=== PATIENT | male | born 1945 | race Caucasian/White ===

== ENCOUNTER 2016-10-27 16:25 | Inpatient (IN) | payer OTHER ==
[2016-10-27 17:34] VITALS: BMI 33.6
--- NOTE | 2016-10-27 21:10 | HP ---
Admission [facility] Chief Complaint: SEEKING DETOX SERVICES. Allergies/Adverse Reactions: Allergies Allergy/AdvReac Type Severity Reaction Status Date / Time No Known Allergies Allergy Verified 10/27/16 19:31 History of Present Illness: 71 y.o. man with an extensive history of alcohol dependence is here seeking rehab services. He reports he last completed rehab 2 months ago at [facility]. He reports he does not have a significant period of sobriety. Exam Limitations: Physical Impairment (Ambulates with the use of a cane.) - Ebola screening Have you traveled outside of the country in the last 21 days: No (N) Have you had contact with anyone from an Ebola affected area: No Have you been sick,other than usual withdrawal symptoms: No Do you have a fever: No - Review of Systems Constitutional: Changes in sleep EENT: reports: No Symptoms Reported Respiratory: reports: Wheezing Cardiac: reports: No Symptoms Reported GI: reports: No Symptoms Reported : reports: No Symptoms Reported Musculoskeletal: reports: No Symptoms Reported Integumentary: reports: No Symptoms Reported Neuro: reports: No Symptoms reported Endocrine: reports: No Symptoms Reported Hematology: reports: No Symptoms Reported Psychiatric: reports: Orientated x3 Other Systems: Reviewed and Negative Patient History - Patient Medical History Hx Anemia: No Hx Asthma: Yes Hx Chronic Obstructive Pulmonary Disease (COPD): No Hx Cancer: No Hx Cardiac Disorders: Yes (CABG) Hx Congestive Heart Failure: No Hx Hypertension: No Hx Hypercholesterolemia: Yes Hx Pacemaker: No HX Cerebrovascular Accident: No Hx Seizures: No Hx Dementia: No Hx Diabetes: No Hx Gastrointestinal Disorders: No Hx Liver Disease: No Hx Genitourinary Disorders: No Hx Sexually Transmitted Disorders: No Hx Renal Disease (ESRD): No Hx Thyroid Disease: No Hx Human Immunodeficiency Virus (HIV): No Hx Hepatitis C: No Hx Depression: No Hx Suicide Attempt: No Hx Bipolar Disorder: No Hx Schizophrenia: No - Patient Surgical History Past Surgical History: Yes Hx Cardiac Surgery: Yes (CABG ) Hx Appendectomy: Yes Anesthesia Reaction: No - PPD History Previous Implant?: Yes Documented Results: Negative w/o proof PPD to be Administered?: Yes - Reproductive History Patient is a Female of Child Bearing Age (11 -55 yrs old): No - Smoking Cessation Smoking history: Current every day smoker Have you smoked in the past 12 months: Yes Aproximately how many cigarettes per day: 3 Hx Chewing Tobacco Use: No Initiated information on smoking cessation: Yes 'Breaking Loose' booklet given: 10/27/16 - Substance & Tx. History Hx Alcohol Use: Yes Hx Substance Use: No Substance Use Type: Alcohol Hx Substance Use Treatment: Yes (REHAB: 08/2016; DENIES GOING TO [facility]OX [facility] ) - Substances Abused Alcohol Route: Oral Frequency: Daily Amount used: 2-3 PINTS Age of first use: 9 Date of Last Use: 10/11/16 Family Disease History - Family Disease History Family History: Denies Admission Physical Exam [facility] - Vital Signs Vital Signs: Vital Signs - 24 hr 10/27/16 17:31 Temperature 96.9 F L Pulse Rate 83 Respiratory 18 Rate Blood Pressure 101/63 - Physical General Appearance: Yes: No Apparent Distress, Nourished, Appropriately Dressed HEENTM: Yes: Hearing grossly Normal, Normocephalic, Normal Voice Respiratory: Yes: Chest Non-Tender, Lungs Clear, Normal Breath Sounds, No Respiratory Distress, No Accessory Muscle Use Neck: Yes: No masses,lesions,Nodules, Trachea in good position Breast: Yes: Breast Exam Deferred Cardiology: Yes: Regular Rhythm, Regular Rate Abdominal: Yes: Non Tender, Flat, Soft Genitourinary: Yes: Other (DENIES ANY COMPLAINTS) Back: Yes: Normal Inspection Musculoskeletal: Yes: Back pain, Other (UNSTEAD GAIT; USES A CANE TO AMBULATE) Extremities: Yes: Normal Capillary Refill, Normal Inspection, Normal Range of Motion, Non-Tender 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: Yes: 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, Alert, Motor Strength 5/5, Normal Mood /Affect, Normal Response Integumentary: Yes: Normal Color, Warm Lymphatic: Yes: Within Normal Limits - Diagnostic (1) Alcohol dependence with uncomplicated withdrawal Current Visit: Yes Status: Chronic (2) Asthma Current Visit: Yes Status: Chronic (3) Unsteady gait Current Visit: Yes Status: Chronic Cleared for Admission [facility] - Detox or Rehab [facility] Level of Care: Observation Bed Claeared for Rehab Admission: Yes [facility] Breath Alcohol Content Breath Alcohol Content: 0 Urine Drug Screen - Results Drug Screen Negative: No Urine Drug Screen Results: BZO-Benzodiazepines
[2016-10-27] MEDS ORDERED: IBUPROFEN 400 MG TABLET (FP) PO PRN (21:15)
[2016-10-27] MEDS ORDERED: MAGNESIUM CITRATE 300 ML BOTTLE PO PRN (21:15)
[2016-10-27] MEDS ORDERED: MENTHOL/PHENOL 1 EACH UD MM PRN (21:15)
[2016-10-27] MEDS ORDERED: MAG HYDROX/AL HYDROX/SIMETH 30 ML UNIT-DOSE CUP PO PRN (21:15)
[2016-10-27] MEDS ORDERED: guaiFENesin/D-METHORPHAN HB 10 ML UNIT-DOSE CUPS PO PRN (21:15)
[2016-10-27] MEDS ORDERED: NICOTINE POLACRILEX 2 MG GUM BUC PRN (21:15)
[2016-10-27] MEDS ORDERED: P-EPHED 60MG/TRIPROLIDI 2.5MG TABLET PO PRN (21:15)
[2016-10-27] MEDS ORDERED: LOPERAMIDE HCL 2 MG CAPSULE PO PRN (21:15)
[2016-10-27] MEDS ORDERED: MAGNESIUM HYDROX 2400MG/30ML ORAL SUSPENSION 30 ML CUP PO PRN (21:15)
[2016-10-27] MEDS: THIAMINE HCL 100 MG TABLET (FP) PO SCH (23:58)
[2016-10-28] MEDS: ASPIRIN COATED 81 MG TABLET.EC PO SCH (09:48)
[2016-10-28] MEDS: hydrOXYzine PAMOATE 50 MG CAPSULE (FP) PO PRN (09:48)
[2016-10-28] MEDS: PRENATAL VITAMINS W/ FOLIC ACID TABLET (FP) PO SCH (09:48)
[2016-10-28] MEDS: NICOTINE 14 MG/24 HOURS TOPICAL PATCH TD SCH (09:49)
[2016-10-28 13:44] LABS: MCH 31.1 pg (25.7-33.7); MCHC 32.3 g/dl (32.0-35.9); MEAN CELL VOLUME 96.1 fl (80-96); MEAN PLT VOLUME 8.7 fl (7.5-11.1); PLATELET COUNT 237 K/MM3 (134-434); RDW 17.5 % (11.9-15.9); WHITE BLOOD COUNT 6.7 K/mm3 (4.0-10.0)
[2016-10-28 13:57] LABS: ALBUMIN 3.4 g/dl (3.4-5.0); ANION GAP 9 (8-16); BILIRUBIN,TOTAL 0.2 mg/dL (0.2-1.0); CALCIUM 8.5 mg/dL (8.5-10.1); CO2 30 mmol/L (21-32); CREATININE 1.7 mg/dL (0.7-1.3); GLUCOSE,RANDOM 152 mg/dL (74-106); SGOT/AST 44 U/L (15-37); SGPT/ALT 52 U/L (12-78); TOT PROT 6.5 g/dl (6.4-8.2)
[2016-10-28 13:58] LABS: ALK PHOS 59 U/L (45-117)
[2016-10-28] MEDS: THIAMINE HCL 100 MG TABLET (FP) PO SCH (21:37)
--- NOTE | 2016-10-29 08:10 | EKG ---
Test Reason : Blood Pressure : / mmHG Vent. Rate : 078 BPM Atrial Rate : 078 BPM P-R Int : 148 ms QRS Dur : 112 ms QT Int : 422 ms P-R-T Axes : 075 055 047 degrees QTc Int : 481 ms POOR DATA QUALITY, INTERPRETATION MAY BE ADVERSELY AFFECTED SINUS RHYTHM WITH PREMATURE ATRIAL COMPLEXES WITH ABERRANT CONDUCTION RIGHT BUNDLE BRANCH BLOCK ABNORMAL ECG NO PREVIOUS ECGS AVAILABLE Confirmed by SINCERE JIMENEZ, DHRUV ([id number]) on 10/29/2016 8:10:28 AM Referred By: Nuvia Rush Confirmed By:DHRUV POST MD
[2016-10-29] MEDS: hydrOXYzine PAMOATE 50 MG CAPSULE (FP) PO PRN (10:00)
[2016-10-29] MEDS: ASPIRIN COATED 81 MG TABLET.EC PO SCH (10:00)
[2016-10-29] MEDS: NICOTINE 14 MG/24 HOURS TOPICAL PATCH TD SCH (10:00)
[2016-10-29] MEDS: PRENATAL VITAMINS W/ FOLIC ACID TABLET (FP) PO SCH (10:00)
[2016-10-29] MEDS: THIAMINE HCL 100 MG TABLET (FP) PO SCH (21:09)
[2016-10-29] MEDS: diphenhydrAMINE HCL 50 MG CAPSULE PO PRN (21:10)
[2016-10-29] MEDS: ACETAMINOPHEN 325 MG TABLET (FP) PO PRN (22:11)
[2016-10-30] MEDS: ASPIRIN COATED 81 MG TABLET.EC PO SCH (10:07)
[2016-10-30] MEDS: PRENATAL VITAMINS W/ FOLIC ACID TABLET (FP) PO SCH (10:07)
[2016-10-30] MEDS: NICOTINE 14 MG/24 HOURS TOPICAL PATCH TD SCH (10:07)
--- NOTE | 2016-10-30 15:22 | HP ---
Psychiatrist Admission - Data Date of interview: 10/30/16 Admission source: [facility] Identifying data: This is the first 5n inpatient rehabilitation admission for this 71 year old male who is divorce, domiciled and supported on [facility]. Medical History: Asthma, smokes 3 cigarettes a day. Psychiatric History: Denies. Physical/Sexual Abuse/Trauma History: Denies history of sexual. physical abuse. Additional Comment: completed rehab. 2 months ago at [facility] Vital Signs: Vital Signs - 24 hr 10/30/16 10/30/16 10/30/16 00:30 03:30 07:12 Temperature 97.8 F Pulse Rate 78 Respiratory 18 18 18 Rate Blood Pressure 140/72 Allergies/Adverse Reactions: Allergies Allergy/AdvReac Type Severity Reaction Status Date / Time No Known Allergies Allergy Verified 10/27/16 19:31 Date of last physical exam: 10/27/16 Concur with the findings of this exam: Yes - Substance Abuse/Tx History Hx Alcohol Use: Yes (first age of use 9 , daily 2-3 pints ) Hx Substance Use: No Substance Use Type: Alcohol Hx Substance Use Treatment: Yes - Admission Criteria Previous failed treatment: Yes Poor recovery environment: Yes Comorbidities: No Lacks judgement: Yes Mental Status Exam - Mental Status Exam Alert and Oriented to: Time, Place, Person Cognitive Function: Grossly Intact Patient Appearance: Unkempt, Disheveled Mood: Angry, Hostile, Irritable Affect: Mood Congruent Patient Behavior: Guarded Speech Pattern: Clear Voice Loudness: Normal Thought Process: Goal Oriented Thought Disorder: Not Present Hallucinations: Denies Suicidal Ideation: Denies Homicidal Ideation: Denies Insight/Judgement: Fair Sleep: Fair Appetite: Fair Muscle strength/Tone: Normal Psychiatric Findings - Problem List ([employer] 1, 2,3) (1) Alcohol dependence Current Visit: Yes Status: Acute (2) Nicotine addiction Current Visit: Yes Status: Acute - Initial Treatment Plan Initial Treatment Plan: will monitor progress as needed.
[2016-10-30] MEDS: THIAMINE HCL 100 MG TABLET (FP) PO SCH (21:12)
[2016-10-30] MEDS: BUDESONIDE/FORMETEROL FUMARATE 160/4.5 mcg INHALER IH SCH (21:12)
[2016-10-31] MEDS ORDERED: cloNIDine HCL 0.1 MG TABLET PO ONE (06:44)
[2016-10-31] MEDS: BUDESONIDE/FORMETEROL FUMARATE 160/4.5 mcg INHALER IH SCH ×2 (10:44→21:16)
[2016-10-31] MEDS: NICOTINE 14 MG/24 HOURS TOPICAL PATCH TD SCH (10:44)
[2016-10-31] MEDS: PRENATAL VITAMINS W/ FOLIC ACID TABLET (FP) PO SCH (10:45)
[2016-10-31] MEDS: ASPIRIN COATED 81 MG TABLET.EC PO SCH (10:45)
[2016-10-31] MEDS: ALBUTEROL SO4 6.7 GM HFA INHALER IH PRN (17:02)
[2016-10-31] MEDS: ACETAMINOPHEN 325 MG TABLET (FP) PO PRN (19:56)
[2016-10-31] MEDS: THIAMINE HCL 100 MG TABLET (FP) PO SCH (21:17)
[2016-11-01] MEDS: ASPIRIN COATED 81 MG TABLET.EC PO SCH (10:14)
[2016-11-01] MEDS: BUDESONIDE/FORMETEROL FUMARATE 160/4.5 mcg INHALER IH SCH ×2 (10:16→21:09)
[2016-11-01] MEDS: PRENATAL VITAMINS W/ FOLIC ACID TABLET (FP) PO SCH (10:16)
[2016-11-01] MEDS: NICOTINE 14 MG/24 HOURS TOPICAL PATCH TD SCH (10:17)
[2016-11-01] MEDS: FLUOCINONIDE 0.05% TOP OINT (60 GM TUBE) TP SCH ×2 (14:18→21:10)
[2016-11-01] MEDS: THIAMINE HCL 100 MG TABLET (FP) PO SCH (21:08)
[2016-11-01] MEDS: diphenhydrAMINE HCL 50 MG CAPSULE PO PRN (21:08)
[2016-11-02] MEDS: PRENATAL VITAMINS W/ FOLIC ACID TABLET (FP) PO SCH (10:18)
[2016-11-02] MEDS: ASPIRIN COATED 81 MG TABLET.EC PO SCH (10:18)
[2016-11-02] MEDS: NICOTINE 14 MG/24 HOURS TOPICAL PATCH TD SCH (10:18)
[2016-11-02] MEDS: FLUOCINONIDE 0.05% TOP OINT (60 GM TUBE) TP SCH ×2 (10:19→21:11)
[2016-11-02] MEDS: BUDESONIDE/FORMETEROL FUMARATE 160/4.5 mcg INHALER IH SCH ×2 (10:19→21:10)
[2016-11-02] MEDS: diphenhydrAMINE HCL 50 MG CAPSULE PO PRN (21:10)
[2016-11-02] MEDS: THIAMINE HCL 100 MG TABLET (FP) PO SCH (21:10)
[2016-11-03] MEDS: BUDESONIDE/FORMETEROL FUMARATE 160/4.5 mcg INHALER IH SCH ×2 (09:40→22:13)
[2016-11-03] MEDS: PRENATAL VITAMINS W/ FOLIC ACID TABLET (FP) PO SCH (09:40)
[2016-11-03] MEDS: ASPIRIN COATED 81 MG TABLET.EC PO SCH (09:40)
[2016-11-03] MEDS: FLUOCINONIDE 0.05% TOP OINT (60 GM TUBE) TP SCH ×2 (09:40→22:13)
[2016-11-03] MEDS: NICOTINE 14 MG/24 HOURS TOPICAL PATCH TD SCH (09:41)
[2016-11-03] MEDS: THIAMINE HCL 100 MG TABLET (FP) PO SCH (21:14)
[2016-11-03] MEDS: diphenhydrAMINE HCL 50 MG CAPSULE PO PRN (21:14)
[2016-11-04] MEDS: FLUOCINONIDE 0.05% TOP OINT (60 GM TUBE) TP SCH ×2 (09:45→21:23)
[2016-11-04] MEDS: PRENATAL VITAMINS W/ FOLIC ACID TABLET (FP) PO SCH (09:45)
[2016-11-04] MEDS: ASPIRIN COATED 81 MG TABLET.EC PO SCH (09:45)
[2016-11-04] MEDS: BUDESONIDE/FORMETEROL FUMARATE 160/4.5 mcg INHALER IH SCH ×2 (09:46→21:24)
[2016-11-04] MEDS: NICOTINE 14 MG/24 HOURS TOPICAL PATCH TD SCH (09:46)
[2016-11-04] MEDS: ALBUTEROL SO4 6.7 GM HFA INHALER IH PRN (20:15)
[2016-11-04] MEDS: diphenhydrAMINE HCL 50 MG CAPSULE PO PRN (21:23)
[2016-11-04] MEDS: THIAMINE HCL 100 MG TABLET (FP) PO SCH (21:23)
[2016-11-05] MEDS: ASPIRIN COATED 81 MG TABLET.EC PO SCH (09:54)
[2016-11-05] MEDS: PRENATAL VITAMINS W/ FOLIC ACID TABLET (FP) PO SCH (09:54)
[2016-11-05] MEDS: FLUOCINONIDE 0.05% TOP OINT (60 GM TUBE) TP SCH ×2 (09:54→21:11)
[2016-11-05] MEDS: NICOTINE 14 MG/24 HOURS TOPICAL PATCH TD SCH (09:54)
[2016-11-05] MEDS: BUDESONIDE/FORMETEROL FUMARATE 160/4.5 mcg INHALER IH SCH ×2 (09:55→21:11)
[2016-11-05] MEDS: THIAMINE HCL 100 MG TABLET (FP) PO SCH (21:11)
[2016-11-05] MEDS: diphenhydrAMINE HCL 50 MG CAPSULE PO PRN (21:11)
[2016-11-06] MEDS: ALBUTEROL SO4 6.7 GM HFA INHALER IH PRN (06:23)
[2016-11-06] MEDS: PRENATAL VITAMINS W/ FOLIC ACID TABLET (FP) PO SCH (09:56)
[2016-11-06] MEDS: BUDESONIDE/FORMETEROL FUMARATE 160/4.5 mcg INHALER IH SCH ×2 (09:56→21:19)
[2016-11-06] MEDS: FLUOCINONIDE 0.05% TOP OINT (60 GM TUBE) TP SCH ×2 (09:56→21:20)
[2016-11-06] MEDS: ASPIRIN COATED 81 MG TABLET.EC PO SCH (09:56)
[2016-11-06] MEDS: NICOTINE 14 MG/24 HOURS TOPICAL PATCH TD SCH (09:57)
[2016-11-06] MEDS: THIAMINE HCL 100 MG TABLET (FP) PO SCH (21:19)
[2016-11-06] MEDS: diphenhydrAMINE HCL 50 MG CAPSULE PO PRN (21:19)
[2016-11-07] MEDS: ALBUTEROL SO4 6.7 GM HFA INHALER IH PRN (06:10)
[2016-11-07] MEDS: PRENATAL VITAMINS W/ FOLIC ACID TABLET (FP) PO SCH (10:05)
[2016-11-07] MEDS: BUDESONIDE/FORMETEROL FUMARATE 160/4.5 mcg INHALER IH SCH ×2 (10:05→21:25)
[2016-11-07] MEDS: ASPIRIN COATED 81 MG TABLET.EC PO SCH (10:05)
[2016-11-07] MEDS: FLUOCINONIDE 0.05% TOP OINT (60 GM TUBE) TP SCH ×2 (10:06→21:25)
[2016-11-07] MEDS: NICOTINE 14 MG/24 HOURS TOPICAL PATCH TD SCH (10:06)
[2016-11-07] MEDS: THIAMINE HCL 100 MG TABLET (FP) PO SCH (21:24)
[2016-11-07] MEDS: diphenhydrAMINE HCL 50 MG CAPSULE PO PRN (21:24)
[2016-11-08] MEDS: BUDESONIDE/FORMETEROL FUMARATE 160/4.5 mcg INHALER IH SCH ×2 (10:05→23:09)
[2016-11-08] MEDS: PRENATAL VITAMINS W/ FOLIC ACID TABLET (FP) PO SCH (10:05)
[2016-11-08] MEDS: NICOTINE 14 MG/24 HOURS TOPICAL PATCH TD SCH (10:05)
[2016-11-08] MEDS: FLUOCINONIDE 0.05% TOP OINT (60 GM TUBE) TP SCH ×2 (10:05→22:40)
[2016-11-08] MEDS: ASPIRIN COATED 81 MG TABLET.EC PO SCH (10:05)
[2016-11-08] MEDS: diphenhydrAMINE HCL 50 MG CAPSULE PO PRN (21:10)
[2016-11-08] MEDS: THIAMINE HCL 100 MG TABLET (FP) PO SCH (21:10)
[2016-11-09] MEDS: ALBUTEROL SO4 6.7 GM HFA INHALER IH PRN (06:11)
[2016-11-09] MEDS: FLUOCINONIDE 0.05% TOP OINT (60 GM TUBE) TP SCH ×2 (09:59→21:48)
[2016-11-09] MEDS: NICOTINE 14 MG/24 HOURS TOPICAL PATCH TD SCH (09:59)
[2016-11-09] MEDS: PRENATAL VITAMINS W/ FOLIC ACID TABLET (FP) PO SCH (09:59)
[2016-11-09] MEDS: ASPIRIN COATED 81 MG TABLET.EC PO SCH (09:59)
[2016-11-09] MEDS: BUDESONIDE/FORMETEROL FUMARATE 160/4.5 mcg INHALER IH SCH ×2 (09:59→21:48)
[2016-11-09] MEDS: THIAMINE HCL 100 MG TABLET (FP) PO SCH (21:48)
[2016-11-09] MEDS: diphenhydrAMINE HCL 50 MG CAPSULE PO PRN (21:48)
[2016-11-10] MEDS: PRENATAL VITAMINS W/ FOLIC ACID TABLET (FP) PO SCH (09:51)
[2016-11-10] MEDS: ASPIRIN COATED 81 MG TABLET.EC PO SCH (09:51)
[2016-11-10] MEDS: NICOTINE 14 MG/24 HOURS TOPICAL PATCH TD SCH (10:00)
[2016-11-10] MEDS: FLUOCINONIDE 0.05% TOP OINT (60 GM TUBE) TP SCH ×2 (10:00→21:19)
[2016-11-10] MEDS: BUDESONIDE/FORMETEROL FUMARATE 160/4.5 mcg INHALER IH SCH ×2 (10:00→21:19)
[2016-11-10] MEDS: diphenhydrAMINE HCL 50 MG CAPSULE PO PRN (21:19)
[2016-11-10] MEDS: THIAMINE HCL 100 MG TABLET (FP) PO SCH (21:19)
[2016-11-11] MEDS: ALBUTEROL SO4 6.7 GM HFA INHALER IH PRN ×2 (06:16→09:52)
[2016-11-11] MEDS ORDERED: PT OWN MED DRAWER 7, Y5N ONE (08:37)
[2016-11-11] MEDS: FLUOCINONIDE 0.05% TOP OINT (60 GM TUBE) TP SCH ×2 (09:51→21:03)
[2016-11-11] MEDS: PRENATAL VITAMINS W/ FOLIC ACID TABLET (FP) PO SCH (09:51)
[2016-11-11] MEDS: BUDESONIDE/FORMETEROL FUMARATE 160/4.5 mcg INHALER IH SCH ×2 (09:51→21:03)
[2016-11-11] MEDS: ASPIRIN COATED 81 MG TABLET.EC PO SCH (09:51)
[2016-11-11] MEDS: NICOTINE 14 MG/24 HOURS TOPICAL PATCH TD SCH (09:51)
[2016-11-11] MEDS: diphenhydrAMINE HCL 50 MG CAPSULE PO PRN (21:04)
[2016-11-11] MEDS: THIAMINE HCL 100 MG TABLET (FP) PO SCH (21:04)
[2016-11-12] MEDS: PRENATAL VITAMINS W/ FOLIC ACID TABLET (FP) PO SCH (09:54)
[2016-11-12] MEDS: BUDESONIDE/FORMETEROL FUMARATE 160/4.5 mcg INHALER IH SCH ×2 (09:54→21:55)
[2016-11-12] MEDS: ASPIRIN COATED 81 MG TABLET.EC PO SCH (09:54)
[2016-11-12] MEDS: NICOTINE 14 MG/24 HOURS TOPICAL PATCH TD SCH (09:55)
[2016-11-12] MEDS: FLUOCINONIDE 0.05% TOP OINT (60 GM TUBE) TP SCH ×2 (09:55→21:56)
[2016-11-12] MEDS: diphenhydrAMINE HCL 50 MG CAPSULE PO PRN (21:55)
[2016-11-12] MEDS: THIAMINE HCL 100 MG TABLET (FP) PO SCH (21:55)
[2016-11-13] MEDS: ALBUTEROL SO4 6.7 GM HFA INHALER IH PRN (06:54)
[2016-11-13] MEDS: BUDESONIDE/FORMETEROL FUMARATE 160/4.5 mcg INHALER IH SCH ×2 (09:48→21:33)
[2016-11-13] MEDS: ASPIRIN COATED 81 MG TABLET.EC PO SCH (09:48)
[2016-11-13] MEDS: PRENATAL VITAMINS W/ FOLIC ACID TABLET (FP) PO SCH (09:48)
[2016-11-13] MEDS: NICOTINE 14 MG/24 HOURS TOPICAL PATCH TD SCH (09:49)
[2016-11-13] MEDS: FLUOCINONIDE 0.05% TOP OINT (60 GM TUBE) TP SCH ×2 (09:49→21:33)
[2016-11-13] MEDS: THIAMINE HCL 100 MG TABLET (FP) PO SCH (21:33)
[2016-11-13] MEDS: diphenhydrAMINE HCL 50 MG CAPSULE PO PRN (21:33)
[2016-11-14] MEDS: ALBUTEROL SO4 6.7 GM HFA INHALER IH PRN (06:48)
[2016-11-14] MEDS: ASPIRIN COATED 81 MG TABLET.EC PO SCH (10:02)
[2016-11-14] MEDS: FLUOCINONIDE 0.05% TOP OINT (60 GM TUBE) TP SCH ×2 (10:03→21:14)
[2016-11-14] MEDS: PRENATAL VITAMINS W/ FOLIC ACID TABLET (FP) PO SCH (10:03)
[2016-11-14] MEDS: NICOTINE 14 MG/24 HOURS TOPICAL PATCH TD SCH (10:03)
[2016-11-14] MEDS: BUDESONIDE/FORMETEROL FUMARATE 160/4.5 mcg INHALER IH SCH ×2 (10:04→21:14)
[2016-11-14] MEDS: THIAMINE HCL 100 MG TABLET (FP) PO SCH (21:14)
[2016-11-14] MEDS: diphenhydrAMINE HCL 50 MG CAPSULE PO PRN (21:14)
[2016-11-15] MEDS: ASPIRIN COATED 81 MG TABLET.EC PO SCH (09:47)
[2016-11-15] MEDS: FLUOCINONIDE 0.05% TOP OINT (60 GM TUBE) TP SCH ×2 (09:47→21:24)
[2016-11-15] MEDS: NICOTINE 14 MG/24 HOURS TOPICAL PATCH TD SCH (09:47)
[2016-11-15] MEDS: BUDESONIDE/FORMETEROL FUMARATE 160/4.5 mcg INHALER IH SCH ×2 (09:47→21:23)
[2016-11-15] MEDS: PRENATAL VITAMINS W/ FOLIC ACID TABLET (FP) PO SCH (09:47)
[2016-11-15] MEDS: THIAMINE HCL 100 MG TABLET (FP) PO SCH (21:23)
[2016-11-15] MEDS: diphenhydrAMINE HCL 50 MG CAPSULE PO PRN (21:23)
[2016-11-16] MEDS: BUDESONIDE/FORMETEROL FUMARATE 160/4.5 mcg INHALER IH SCH ×2 (10:01→21:12)
[2016-11-16] MEDS: ASPIRIN COATED 81 MG TABLET.EC PO SCH (10:01)
[2016-11-16] MEDS: PRENATAL VITAMINS W/ FOLIC ACID TABLET (FP) PO SCH (10:01)
[2016-11-16] MEDS: FLUOCINONIDE 0.05% TOP OINT (60 GM TUBE) TP SCH ×2 (10:01→21:11)
[2016-11-16] MEDS: NICOTINE 14 MG/24 HOURS TOPICAL PATCH TD SCH (10:01)
[2016-11-16] MEDS: THIAMINE HCL 100 MG TABLET (FP) PO SCH (21:12)
[2016-11-16] MEDS: diphenhydrAMINE HCL 50 MG CAPSULE PO PRN (21:13)
[2016-11-17] MEDS ORDERED: PT OWN MED DRAWER 7, Y5N ONE (08:30)
[2016-11-17] MEDS: ASPIRIN COATED 81 MG TABLET.EC PO SCH (09:45)
[2016-11-17] MEDS: NICOTINE 14 MG/24 HOURS TOPICAL PATCH TD SCH (09:45)
[2016-11-17] MEDS: PRENATAL VITAMINS W/ FOLIC ACID TABLET (FP) PO SCH (09:45)
[2016-11-17] MEDS: BUDESONIDE/FORMETEROL FUMARATE 160/4.5 mcg INHALER IH SCH ×2 (09:45→21:07)
[2016-11-17] MEDS: FLUOCINONIDE 0.05% TOP OINT (60 GM TUBE) TP SCH ×2 (09:46→21:07)
[2016-11-17] MEDS: THIAMINE HCL 100 MG TABLET (FP) PO SCH (21:07)
[2016-11-17] MEDS: diphenhydrAMINE HCL 50 MG CAPSULE PO PRN (21:07)
[2016-11-18] MEDS: ASPIRIN COATED 81 MG TABLET.EC PO SCH (09:34)
[2016-11-18] MEDS: BUDESONIDE/FORMETEROL FUMARATE 160/4.5 mcg INHALER IH SCH ×2 (09:34→21:17)
[2016-11-18] MEDS: FLUOCINONIDE 0.05% TOP OINT (60 GM TUBE) TP SCH ×2 (09:35→22:45)
[2016-11-18] MEDS: NICOTINE 14 MG/24 HOURS TOPICAL PATCH TD SCH (09:35)
[2016-11-18] MEDS: PRENATAL VITAMINS W/ FOLIC ACID TABLET (FP) PO SCH (09:35)
[2016-11-18] MEDS: diphenhydrAMINE HCL 50 MG CAPSULE PO PRN (21:16)
[2016-11-18] MEDS: THIAMINE HCL 100 MG TABLET (FP) PO SCH (21:17)
[2016-11-19] MEDS: ASPIRIN COATED 81 MG TABLET.EC PO SCH (09:49)
[2016-11-19] MEDS: PRENATAL VITAMINS W/ FOLIC ACID TABLET (FP) PO SCH (09:49)
[2016-11-19] MEDS: BUDESONIDE/FORMETEROL FUMARATE 160/4.5 mcg INHALER IH SCH ×2 (09:49→21:15)
[2016-11-19] MEDS: FLUOCINONIDE 0.05% TOP OINT (60 GM TUBE) TP SCH ×2 (09:49→21:15)
[2016-11-19] MEDS: NICOTINE 14 MG/24 HOURS TOPICAL PATCH TD SCH (09:50)
[2016-11-19] MEDS: THIAMINE HCL 100 MG TABLET (FP) PO SCH (21:15)
[2016-11-19] MEDS: diphenhydrAMINE HCL 50 MG CAPSULE PO PRN (21:16)
[2016-11-20] MEDS: NICOTINE 14 MG/24 HOURS TOPICAL PATCH TD SCH (10:04)
[2016-11-20] MEDS: PRENATAL VITAMINS W/ FOLIC ACID TABLET (FP) PO SCH (10:04)
[2016-11-20] MEDS: FLUOCINONIDE 0.05% TOP OINT (60 GM TUBE) TP SCH ×2 (10:05→21:19)
[2016-11-20] MEDS: ASPIRIN COATED 81 MG TABLET.EC PO SCH (10:05)
[2016-11-20] MEDS ORDERED: PT OWN MED DRAWER 7, Y5N ONE (10:06)
[2016-11-20] MEDS: BUDESONIDE/FORMETEROL FUMARATE 160/4.5 mcg INHALER IH SCH ×2 (10:06→21:18)
[2016-11-20] MEDS: THIAMINE HCL 100 MG TABLET (FP) PO SCH (21:18)
[2016-11-20] MEDS: diphenhydrAMINE HCL 50 MG CAPSULE PO PRN (21:19)
[2016-11-21] MEDS: FLUOCINONIDE 0.05% TOP OINT (60 GM TUBE) TP SCH ×2 (10:00→21:15)
[2016-11-21] MEDS: ASPIRIN COATED 81 MG TABLET.EC PO SCH (10:00)
[2016-11-21] MEDS: NICOTINE 14 MG/24 HOURS TOPICAL PATCH TD SCH (10:00)
[2016-11-21] MEDS: PRENATAL VITAMINS W/ FOLIC ACID TABLET (FP) PO SCH (10:00)
[2016-11-21] MEDS: BUDESONIDE/FORMETEROL FUMARATE 160/4.5 mcg INHALER IH SCH ×2 (10:00→21:15)
[2016-11-21] MEDS: diphenhydrAMINE HCL 50 MG CAPSULE PO PRN (21:15)
[2016-11-21] MEDS: THIAMINE HCL 100 MG TABLET (FP) PO SCH (21:15)
[2016-11-22] MEDS: PRENATAL VITAMINS W/ FOLIC ACID TABLET (FP) PO SCH (09:41)
[2016-11-22] MEDS: FLUOCINONIDE 0.05% TOP OINT (60 GM TUBE) TP SCH ×2 (09:41→21:14)
[2016-11-22] MEDS: BUDESONIDE/FORMETEROL FUMARATE 160/4.5 mcg INHALER IH SCH ×2 (09:41→21:14)
[2016-11-22] MEDS: NICOTINE 14 MG/24 HOURS TOPICAL PATCH TD SCH (09:41)
[2016-11-22] MEDS: ASPIRIN COATED 81 MG TABLET.EC PO SCH (09:41)
[2016-11-22] MEDS: diphenhydrAMINE HCL 50 MG CAPSULE PO PRN (21:13)
[2016-11-22] MEDS: THIAMINE HCL 100 MG TABLET (FP) PO SCH (21:13)
[2016-11-23 06:59] VITALS: BP 127/71; PULSE 92; TEMP 98.2
[2016-11-23] MEDS: ASPIRIN COATED 81 MG TABLET.EC PO SCH (09:49)
[2016-11-23] MEDS: BUDESONIDE/FORMETEROL FUMARATE 160/4.5 mcg INHALER IH SCH (09:49)
[2016-11-23] MEDS: PRENATAL VITAMINS W/ FOLIC ACID TABLET (FP) PO SCH (09:49)
[2016-11-23] MEDS: NICOTINE 14 MG/24 HOURS TOPICAL PATCH TD SCH (09:49)
[2016-11-23] MEDS: FLUOCINONIDE 0.05% TOP OINT (60 GM TUBE) TP SCH (09:49)
--- NOTE | 2016-11-23 09:50 | PN ---
Psychiatric Progress Note Vital Signs: Vital Signs Period Temp Pulse Resp BP Sys/Blanco Pulse Ox Last 24 Hr 98.2 F 92 18-20 127/71 Date of Session: 11/23/16 Chief Complaint:: discharge visit HPI: Patient has addressed alcohol, nicotine dependence. Current Medications: Active Medications Generic Name Dose Route Start Last Admin Trade Name Freq PRN Reason Stop Dose Admin Acetaminophen 650 mg 10/27/16 21:15 10/31/16 19:56 Tylenol - PO 650 mg Q4H PRN Administration PAIN Al Hydroxide/Mg Hydroxide 30 ml 10/27/16 21:15 Mylanta Oral Suspension - PO Q6H PRN DYSPEPSIA Albuterol Sulfate 1 puff 10/30/16 12:58 11/14/16 06:48 Ventolin Hfa Inhaler - IH 1 puff Q4H PRN Administration ASTHMA Aspirin 81 mg 10/28/16 10:00 11/22/16 09:41 Ecotrin - PO 81 mg DAILY NELLY Administration Budesonide/Formoterol Fumarate 1 puff 10/30/16 22:00 11/22/16 21:14 Symbicort 160/4.5mcg - IH 1 puff BID NELLY Administration Diphenhydramine HCl 50 mg 10/27/16 21:15 11/22/16 21:13 Benadryl - PO 50 mg HSMR1 PRN Administration INSOMNIA Eucalyptus/Menthol/Phenol/Sorbitol 1 each 10/27/16 21:15 Cepastat Lozenge - MM Q4H PRN SORE THROAT Fluocinonide 1 applic 11/01/16 11:30 11/22/16 21:14 Lidex 0.05% Ointment - TP Not Given BID NELLY Guaifenesin 10 ml 10/27/16 21:15 Robitussin Dm - PO Q6H PRN COUGH Hydroxyzine Pamoate 50 mg 10/27/16 21:15 10/29/16 10:00 Vistaril - PO 50 mg Q4H PRN Administration AGITATION Ibuprofen 400 mg 10/27/16 21:15 Motrin - PO Q6H PRN SEVERE PAIN Loperamide HCl 4 mg 10/27/16 21:15 Imodium - PO Q6H PRN DIARRHEA Magnesium Citrate 300 ml 10/27/16 21:15 Citroma - PO Q48H PRN CONSTIPATION Magnesium Hydroxide 30 ml 10/27/16 21:15 Milk Of Magnesia - PO DAILY PRN CONSTIPATION Nicotine 14 mg 10/28/16 10:00 11/22/16 09:41 Nicoderm Patch - TD Not Given DAILY NELLY Nicotine Polacrilex 2 mg 10/27/16 21:15 Nicorette Gum - BUC Q2H PRN NICOTINE REPLACEMENT RX Multivit/Folic Acid/Iron 1 tab 10/28/16 10:00 11/22/16 09:41 Vitamins (Sjr) - PO 1 tab DAILY NELLY Administration Pseudoephedrine/Triprolidine 1 combo 10/27/16 21:15 Actifed - PO TID PRN NASAL CONGESTION Thiamine HCl 100 mg 10/27/16 22:00 11/22/16 21:13 Vitamin B1 - PO 100 mg HS NELLY Administration Current Side Effect: No Lab tests ordered: No Lab tests reviewed: Yes Provider note:: Patient has completed today his treatment and met his goals, will continue to address his issues at AA meetings. He gained insights into his addiction, understands the negative consequenses of drinking and motivated to continue maintian abstienece, patient was encouraged to utilize all supports available to perevent relapses. patient is stable for discharge today. Total face to face time:: 20 Mental Status Exam - Mental Status Exam Alert and Oriented to: Time, Place, Person Cognitive Function: Good Patient Appearance: Well Groomed Mood: Hopeful Affect: Appropriate, Mood Congruent Patient Behavior: Appropriate, Cooperative Speech Pattern: Clear Voice Loudness: Normal Thought Process: Intact, Goal Oriented Thought Disorder: Not Present Hallucinations: Denies Suicidal Ideation: Denies Homicidal Ideation: Denies Insight/Judgement: Fair Sleep: Fair Appetite: Good Muscle strength/Tone: Normal Gait/Station: Other Psychiatric Treatment Plan - Problem List (1) Alcohol dependence Current Visit: Yes (2) Nicotine addiction Current Visit: Yes
== END 2016-11-23 10:30 | disposition home or self-care (01) | DRG 895 ==
LOC: YASAS 16:25 → Y5N 21:18
PROVIDERS: ADMIT Psychiatry & Neurology Psychiatry; ATTEND Psychiatry & Neurology Psychiatry
PROC: HZ42ZZZ Group Counseling for Substance Abuse Treatment, Cognitive-Behavioral (ICD-10-PCS; principal; 2016-10-27)
DX: F19.20 Other psychoactive substance dependence, uncomplicated (principal); F10.20 Alcohol dependence, uncomplicated; F17.210 Nicotine dependence, cigarettes, uncomplicated; J45.909 Unspecified asthma, uncomplicated; E78.00 Pure hypercholesterolemia, unspecified; R26.81 Unsteadiness on feet; Z95.1 Presence of aortocoronary bypass graft
CPT/HCPCS: 36415; 80053; 85027; 86593; 93005; 93010

== ENCOUNTER 2019-09-18 21:19 | Emergency (ER) | payer OTHER ==
[2019-09-18 21:30] VITALS: BP 139/75; PULSE 88; TEMP 98.2; BMI 36.6
[2019-09-18] MEDS ORDERED: ACETAMINOPHEN 325 MG TABLET (FP) PO ONE (21:46)
[2019-09-18] MEDS ORDERED: ACETAMINOPHEN 325 MG TABLET (FP) ONE (22:08)
[2019-09-18] MEDS ORDERED: IBUPROFEN 600 MG TABLET (FP) PO ONE ×2 (22:13)
== END 2019-09-18 23:33 | disposition home or self-care (01) ==
LOC: JER 21:19
DX: R22.1 Localized swelling, mass and lump, neck (principal)
CPT/HCPCS: 99284-25